=== PATIENT | male | born 1990 | race Hispanic/Latino ===

== ENCOUNTER 2021-05-15 17:17 | Emergency (ER) | payer OTHER ==
--- OUTSIDE RECORDS SUMMARY | 2021-05-15 17:19 | XMS REPORT | Continuity of Care Document ---
:1990 Author Organization [facility] t Address [address] [place] [address] Care Team Providers Name Role Phone Pcp, Does Not Have A Attending Clinician Lab, Fam Pob I Attending Clinician Unavailable Doctor Unassigned, Name Attending Clinician Unavailable Anene [employer] Attending Clinician Problems This patient has no known problems. Allergies, Adverse Reactions, Alerts Allergy Allergy Status Severity Reaction(s) Onset Inactive Treating Comm ents Source Name Type Date Date Clinician Peniclli Adverse Active Info Not [facility] Reaction Available [facility] ent Clinics Medications This patient has no known medications. Procedures This patient has no known procedures. Encounters Start End Encounter Admission Attending Care Care Encounter Source Date/Time Date/Time Type Type Clinicians Facility Department ID 2020-09-04 2020-09-04 Telephone SHAUNA Horan [id number] 00:00:00 00:00:00 Patient TOMAS [id number] Does Not [facility] [id number] Have A [id number] 2020-09-03 2020-09-03 Laboratory Lab, [facility] [id number] 13:53:06 14:13:06 Only Fam Pob I [facility] [id number] [place] [id number] Professio [id number] nal [address] 2020-09-03 2020-09-03 Letter Doctor VILLATORO [id number] 00:00:00 00:00:00 (Out) TOMAS Macedo [id number] [place] [facility] [id number] 2020-09-03 2020-09-03 Letter Delores WILIANEMERSON [id number] 00:00:00 00:00:00 (Out) [facility] [id number] [place] [id number] [place] [id number] nal [id number] [address] 2020-07-05 2020-07-05 Outpatient [facility] [id number] [facility]00 [facility] 2020-05-22 2020-05-22 [facility] [id number] [facility] 09:27:00 09:27[facility]00 [facility] [place] [facility] 2020-05-21 2020-05-21 [facility] [id number] 10:00:00 10:00:00 [facility] [place] [facility] Results This patient has no known results.
[2021-05-15 20:17] LABS: Absolute Lymphocytes (CBC) 4.3 K/uL (0.7-4.9); Hematocrit 49.3 % (39.6-49.0); Lymphocytes % 36.8 % (15.3-44.8); MPV 9.4 fL (7.6-11.3); RBC Red Blood Cell Count 5.47 M/uL (4.33-5.43)
[2021-05-15 21:04] LABS: ALT/SGPT 65 U/L (12-78); AST/SGOT 36 U/L (15-37); Albumin 3.9 g/dL (3.4-5.0); Alkaline Phosphatase 89 U/L (45-117); BUN Blood Urea Nitrogen 13 mg/dL (7-18); Bicarbonate 30 mmol/L (21-32); Bilirubin Direct < 0.1 mg/dL (0-0.2); Bilirubin Total 0.3 mg/dL (0.2-1.0); Glucose Level 78 mg/dL (74-106); Lipase 106 U/L (73-393); Potassium 3.7 mmol/L (3.5-5.1); Protein, Total 7.5 g/dL (6.4-8.2); Sodium Level 144 mmol/L (136-145)
--- NOTE | 2021-05-15 22:04 | RAD REPORT ---
EXAM DESCRIPTION: CTAbdomen Pelvis W Contrast - 05/15/2021 9:53 pm CLINICAL HISTORY: Abdominal pain. ABD PAIN COMPARISON: No comparisons TECHNIQUE: Biphasic CT imaging of the abdomen and pelvis was performed with 100 ml non-ionic IV cont rast. All CT scans are performed using dose optimization technique as appropriate and may include automated exposure control or mA/KV adjustment according to patient size. FINDINGS: The lung bases are clear. Hepatic steatosis. Gallbladder is unremarkable. No pancreatic or splenic lesions identified. The kidn eys are unremarkable. No bowel obstruction. Prostate and bladder are unremarkable. Normal appendix. No suspicious bony findings. IMPRESSION: No acute intra-abdominal or pelvic finding.
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
[2021-05-15 23:59] VITALS: BP 129/74; TEMP 97.9; O2SAT 96
== END 2021-05-15 22:22 | disposition home or self-care (01) ==
LOC: ER 17:17
DX: R10.31 Right lower quadrant pain (principal); F17.210 Nicotine dependence, cigarettes, uncomplicated; Z88.0 Allergy status to penicillin; Z91.030 Bee allergy status
CPT/HCPCS: 85025; 80048; 36415; 80076; 83690; 74177; 99284; Q9967